=== PATIENT | female | born 2000 | race Caucasian/White ===

== ENCOUNTER 2020-10-22 09:48 | Outpatient (CLI) | payer BC, SELFPAY ==
[2020-10-22 11:12] LABS: HIV 1/2 Ab P24 Ag Result Negative (Negative)
[2020-10-22 11:37] LABS: Hepatitis B Surface Antigen Negative (Negative)
[2020-10-22 14:22] LABS: Rapid Plasma Reagin Non-Reactive (NonReactive)
[2020-10-27 14:30] LABS: HSV 1 IgM Screen Negative (Negative); HSV 2 IgM Screen Negative (Negative)
== END 2020-10-22 09:49 | disposition home or self-care (01) ==
PROVIDERS: Visit Provider Obstetrics & Gynecology
DX: Z20.2 Contact with and (suspected) exposure to infections with a predominantly sexual mode of transmission (principal)
CPT/HCPCS: 36415; 86592; 86695; 86696; 86703; 87340; G0432

== ENCOUNTER 2022-07-15 03:25 | Emergency (ER) | payer OTHER, SELFPAY ==
[2022-07-15 03:41] VITALS: BP 112/71; PULSE 101; RESP 16; O2SAT 99
[2022-07-15] MEDS: MORPHINE SULFATE (*CRX) 2 MG/ML INJ IV PUSH (04:28)
[2022-07-15] MEDS: ONDANSETRON INJ 4 MG/2 ML VIAL IV PUSH (04:28)
[2022-07-15] MEDS: SODIUM CHLORIDE 0.9% IV 1,000 ML 999 ML IV CONT (04:29)
[2022-07-15 04:42] LABS: Basophils Percent Auto 0.3 % (0.2-1.2); Eosinophils Absolute Auto 0.2 K/mm3 (0-0.3); Hematocrit 38.3 % (37.0-47.0); Hemoglobin 12.8 g/dL (12.0-15.0); Immature Granulocyte Absolute 0.06 K/mm3 (0.00-0.031); Immature Granulocyte Percent A 0.5 % (0-0.5); Lymphocytes Absolute Auto 0.52 K/mm3 (0.9-3.2); Lymphocytes Percent Auto 4.4 % (18.3-44.2); Mean Corpuscular HGB Conc 33.4 g/dl (32-36); Mean Corpuscular Hemoglobin 29.9 pg (26-34); Mean Corpuscular Volume 89.5 fl (80-100); Mean Platelet Volume 9.4 fl (7.4-10.4); Monocytes Absolute Auto 0.5 K/mm3 (0.1-0.6); Monocytes Percent Auto 4.4 % (2.6-8.5); Neutrophils Absolute Auto 10.4 K/mm3 (1.3-6.7); Neutrophils Percent Auto 88.4 % (45.5-73.1); Platelet Count Result 226 k/mm3 (150-375); Red Blood Count 4.28 M/mm3 (4.2-5.4); Red Cell Distribution Width 12.9 % (11.5-14.5); White Blood Count 11.8 K/mm3 (4.5-10.0)
[2022-07-15 04:53] LABS: Alanine Aminotransferase 18 U/L (6-35); Albumin Level 4.8 g/dL (3.5-5.1); Alkaline Phosphatase 50 U/L (38-126); Anion Gap 6 mmol/L (8-16); Aspartate Amino Transferase 26 U/L (14-36); Bilirubin,Total 0.7 mg/dL (0.2-1.3); Blood Urea Nitrogen 15 mg/dL (7-17); Calcium 8.8 mg/dL (8.4-10.2); Carbon Dioxide 31 mmol/L (22-30); Chloride 104 mmol/L (98-107); Estimated CRCL calculation 106 ml/min; Estimated Glomerular Filt Rate > 60; Glucose 102 mg/dL (65-110); Lipase 129 U/L (23-300); Sodium 141 mmol/L (137-145)
[2022-07-15 05:37] LABS: Add Urine Microscopic? YES; Appearance Urine Clear (Clear); Bilirubin Urine 1+ (Negative); Blood Urine Negative (Negative); Color Urine Yellow (Yellow); Glucose Urine UA Negative (Negative); Ketones Urine Trace mg/dL (Negative); Leukocyte Esterase Ur Negative LEU/UL (Negative); Nitrate Urine Negative (Negative); Protein Urine Negative (Negative); Specific Grav Ur >= 1.030 (1.001-1.035); Urobilinogen Urine 0.2 mg/dL (<2.0)
[2022-07-15 05:43] LABS: Mucus Urine Heavy /lpf; RBC Urine 0-2 /hpf (0-2); Squamous Epithelial Cell Urine Occasional /hpf (Few); WBC Urine 0-3 /hpf
--- NOTE | 2022-07-15 06:14 | ED.NAVMDI ---
HPI - Nausea/Vomiting/Diarrhea General Chief complaint: Nausea/Vomiting/Diarrhea Stated complaint: vomiting Time Seen by Provider: 07/15/22 03:35 Source: patient and family Mode of arrival: ambulatory Limitations: no limitations History of Present Illness HPI Narrative: 22-year-old with a history of anxiety, depression here with complaints of upper abdominal pain associated with nausea, vomiting and diarrhea started last night. She states the pain is quite intense. She denies any fever or chills. MD elicited complaint: nausea, vomiting and diarrhea Onset (ago): hour(s) (2) Associated nausea: Yes Associated abdominal pain: Yes Location of pain: epigastric, LUQ and RUQ Pain consistency: constant Severity: moderate Quality: cramping Exacerbating factors: none Relieving factors: none Associated symptoms: denies other symptoms Related Data Home Medications Medication Instructions Recorded Confirmed levonorgestrel 17.5 mcg/24 hrs 1 device intrauterine ONCE 01/14/21 07/25/21 (5yrs) 19.5mg intrauterine device (Kyleena) buspirone 5 mg tablet 5 mg PO TID 07/25/21 07/25/21 fluoxetine 40 mg capsule (Prozac) 40 mg PO DAILY 07/25/21 07/25/21 trazodone 50 mg tablet 50 mg PO QHS PRN 07/25/21 07/25/21 Allergies Allergy/AdvReac Type Severity Reaction Status Date / Time No Known Allergies Allergy Verified 07/15/22 03:42 Review of Systems Review of Systems: All systems reviewed & are unremarkable except as noted in HPI and below Constitutional: Constitutional: Reports no additional constitutional complaints Eyes: Eyes: Reports no additional eye complaints ENT: Reports system reviewed and no additional complaints, except as documented Cardiovascular: Cardiovascular: Reports no additional cardiovascular complaints Respiratory: Respiratory: Reports no additional respiratory complaints Gastrointestinal: Gastrointestinal: Reports as per HPI Musculoskeletal: Musculoskeletal: Reports no additional musculoskeletal complaints [facility] Past Medical History Medical History Anxiety Depression Exposure to sexually transmitted disease (STD) Headache History of chlamydia 09/24/20 Family History Family History Mother Liver cancer Social History Social History Smoking status: Former smoker Alcohol intake: current Substance use: never Exam Narrative: GENERAL: Well-appearing, well-nourished, and in no acute distress. HEAD: Normocephalic, atraumatic. EYES: PERRLA and EOMI. NECK: Supple. CHEST: Clear to auscultation. No respiratory distress. HEART: Regular rate and rhythm. No murmur heard. Normal peripheral pulses. ABDOMEN: Soft, tender in the upper abdomen, nondistended, normal active bowel sounds. EXTREMITIES: Normal range of motion. No edema. SKIN: Warm, dry, no rash. NEURO: No focal deficits. Alert and oriented x3. PSYCH: Normal mood and affect. Course Course Emergency Course: Patient presents with upper abdominal pain associated with nausea vomiting and diarrhea did give her IV morphine 2 mg and 4 of Zofran. Patient was comfortably laying on the bed she feels much better. I did inform her about her lab work. She does feels comfortable going home. Vital Signs Vital signs: Vital Signs Pulse Rate 101 H 07/15/22 03:41 Respiratory Rate 16 07/15/22 03:41 Blood Pressure 112/71 07/15/22 03:41 Pulse Oximetry 99 07/15/22 03:41 Pulse Rate 101 H 07/15/22 03:41 Respiratory Rate 16 07/15/22 03:41 Blood Pressure 112/71 07/15/22 03:41 Pulse Oximetry 99 07/15/22 03:41 MDM - Nausea/Vomiting/Diarrhea MDM Narrative Medical decision making narrative: 22-year-old with upper abdominal pain associated with nausea, vomiting and diarrhea appears to be gastroenteritis she is in quite a bit of pain we will give her IV morphine and Z
[2022-07-15] MEDS: ONDANSETRON HCL ODT 4 MG TABLET PO (06:50)
== END 2022-07-15 07:01 | disposition home or self-care (01) ==
PROVIDERS: Emergency Provider Family Medicine
DX: K52.9 Noninfective gastroenteritis and colitis, unspecified (principal); F41.9 Anxiety disorder, unspecified; F32.A Depression, unspecified; Z87.891 Personal history of nicotine dependence
CPT/HCPCS: 36415; 80053; 81001; 81025; 83690; 85025; 96361; 96374; 96375; 99284; A9270; J2270; J2405; J7030